=== PATIENT | male | born 1980 | race Caucasian/White ===

== ENCOUNTER 2021-06-11 17:23 | Emergency (ER) | payer OTHER, SELFPAY ==
--- NOTE | ~2021-06-11 | CT_ITS ---
EXAMINATION: CT brain wo con DATE: 06/11/2021 18:41 INDICATION: Headache. TECHNIQUE: Computed tomography (CT) of the head was performed without intravenous contrast. The mA wa s adjusted according to patient size. Iterative reconstruction technique was employed. The dose-lengt h product was 605.33 mGy-cm. COMPARISON: None FINDINGS: There is no intracranial hemorrhage, acute infarction, or abnormal intracranial mass lesion . The ventricles are normal in size. The paranasal sinuses are clear. The orbits are normal. The mast oid air cells are normal. IMPRESSION: 1. Normal brain. Reviewed, dictated and finalized at location A. IMPRESSION: 1. Normal brain.
[2021-06-11 17:27] VITALS: BP 175/107; PULSE 59; RESP 16; TEMP 36.7; O2SAT 99
[2021-06-11 18:29] VITALS: BP 158/114; PULSE 62; RESP 18; O2SAT 98
--- NOTE | 2021-06-11 18:34 | PC.NURSE ---
pt off floor to radiology
[2021-06-11] MEDS: diphenhydrAMINE HCl INJ 50 MG/ML VIAL 25 MG IV PUSH (18:50)
[2021-06-11] MEDS: KETOROLAC 30 MG/ML VIAL (*BKC) IV PUSH (18:50)
[2021-06-11] MEDS: SODIUM CHLORIDE 0.9% IV 1,000 ML 999 ML IV CONT (18:50)
[2021-06-11] MEDS: METOCLOPRAMIDE HCL INJ 10 MG/2 ML VIAL IV PUSH (18:50)
--- NOTE | 2021-06-11 19:19 | ED.HA ---
HPI - Headache General Chief Complaint: Headache Stated Complaint: HEADACHE Time Seen by Provider: 06/11/21 17:50 History of Present Illness HPI Narrative: Patient is a 40-year-old male who presents ER with headache. Throbbing and frontal. Began rapidly earlier in the day. Contacted his neurologist in an attempt to get a migraine cocktail but was referred here since he told him that is 10/10 pain. Has sensitivity to light. No numbness or tingling or focal weakness. Has had chronic headaches for 10 months since lucas COVID-19. No fevers or chills or sweats. No neck stiffness. No trauma or straining. Related Data Allergies Allergy/AdvReac Type Severity Reaction Status Date / Time No Known Allergies Allergy Unknown Verified 06/11/21 18:33 Review of Systems Review of Systems: All systems reviewed & are unremarkable except as noted in HPI and below Constitutional: Constitutional: Denies chills, Denies fever(s) and Denies weakness Eyes: Eyes: Denies change in vision and Reports photophobia ENT: Denies nasal congestion and Denies sore throat Musculoskeletal: Musculoskeletal: Denies back pain and Denies muscle cramps Neurologic: Denies vertigo, Denies syncope, Reports headache(s), Denies focal weakness and Denies numbness PMFSH Past Medical History Medical History (Updated 06/11/21 @ 19:27 by Akin White MD) Chronic headaches Surgical History Surgical History (Updated 06/11/21 @ 19:24 by Akin White MD) H/O inguinal hernia repair History of carpal tunnel release History of tonsillectomy Family History Family History (Updated 05/25/16 @ 14:31 by DOCTOR UNKNOWN) Grandparent Diabetes mellitus Other Carcinoma of colon Social History Social History Smoking status: Never smoker Alcohol intake: never Exam Narrative: GENERAL: Well-appearing, well-nourished, and in no acute distress. HEAD: Normocephalic, atraumatic. EYES: PERRLA and EOMI. ENT: Mucous membranes moist. Normal-appearing posterior oropharynx. CHEST: Clear to auscultation. No respiratory distress. HEART: Regular rate and rhythm. Normal peripheral pulses. EXTREMITIES: Normal range of motion. No edema. SKIN: Warm, dry, no rash. NEURO: Alert and oriented x3. PSYCH: Normal mood and affect. Course Course Emergency Course: Patient reports headache improving with Reglan/Benadryl/Toradol/IV fluids. CT unremarkable for acute process. We will plan discharge home. Vital Signs Vital signs: Vital Signs Temperature 98.1 F 06/11/21 17:27 Pulse Rate 59 L 06/11/21 17:27 Respiratory Rate 16 06/11/21 17:27 Blood Pressure 175/107 H 06/11/21 17:27 Pulse Oximetry 99 06/11/21 17:27 Temperature 97.6 F 06/11/21 20:23 Pulse Rate 55 L 06/11/21 20:23 Respiratory Rate 18 06/11/21 20:23 Blood Pressure 139/102 H 06/11/21 20:23 Pulse Oximetry 99 06/11/21 20:23 MDM - Headache Imaging Data Radiologist's impression: ITS Impressions Head CT 06/11/21 18:46 IMPRESSION: 1. Normal brain. Discharge Plan Discharge Clinical Impression: Headache Patient Disposition: Home, Self-Care Condition: Stable Instructions: Acute Headache (ED) Additional Instructions: Return the ER if you lose consciousness, you have fever over 100.4 ?F, you develop new focal weakness or numbness in arm or leg, you have additional concerns. Follow-up/Referrals: CANDIDA,DAWOOD CHURCH [Primary Care Provider] - 1 Week
[2021-06-11 20:23] VITALS: BP 139/102; PULSE 55; RESP 18; TEMP 36.4; O2SAT 99
== END 2021-06-11 20:27 | disposition home or self-care (01) ==
LOC: ANHED 19:31
PROVIDERS: Emergency Provider Emergency Medicine; PCP Nurse Practitioner Family
DX: R51.9 Headache, unspecified (principal); U09.9 Post COVID-19 condition, unspecified
CPT/HCPCS: 70450; 96361; 96374; 96375; 99284; J1200; J1885; J2765; J7030

== ENCOUNTER 2022-08-25 16:24 | Emergency (ER) | payer OTHER, SELFPAY ==
--- NOTE | ~2022-08-25 | XR_ITS ---
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 RESULT: Lines, tubes, and devices: None. Lungs and pleura: Clear. Cardiomediastinal silhouette: Unremarkable. Other: No acute osseous or upper abdominal finding. IMPRESSION: No acute cardiopulmonary process. Reviewed, dictated and finalized at location K. TUB OPERATOR
[2022-08-25 16:41] VITALS: BP 156/108; PULSE 91; RESP 16; TEMP 37; O2SAT 99
[2022-08-25 16:42] VITALS: BP 173/102
--- NOTE | 2022-08-25 17:10 | ED.URI ---
HPI - URI/Sore Throat General Chief Complaint: Upper Respiratory Infection Stated Complaint: cough; headache Time Seen by Provider: 08/25/22 16:40 Source: patient Mode of arrival: ambulatory Limitations: no limitations History of Present Illness HPI Narrative: Spenser is a 41-year-old male patient presenting to the clinic today with complaints of cough and headache from his cough. Reports that he had influenza at Thanksgiving time and has had a cough ever since it has been lingering. He reports he does bring up some phlegm at times. He denies any fever or chills currently. States he has had a history of pneumonia in the past MD elicited complaint: cough and nasal congestion Related Data Home Medications Medication Instructions Recorded Confirmed amlodipine 5 mg tablet 5 mg PO DAILY 08/25/22 08/25/22 escitalopram oxalate 20 mg tablet 20 mg PO DAILY 08/25/22 08/25/22 testosterone cypionate 200 mg/mL 20 mg IM DAILY 08/25/22 08/25/22 intramuscular oil Allergies Allergy/AdvReac Type Severity Reaction Status Date / Time No Known Allergies Allergy Unknown Verified 08/25/22 16:52 Review of Systems Review of Systems: Pertinent positives per HPI. Patient denies any fever, chills, rash, visual changes, dizziness, shortness of breath, chest pain, palpitations, nausea, vomiting, diarrhea, constipation, abdominal pain, or any urinary issues. PMFSH Past Medical History Medical History Chronic headaches Surgical History Surgical History H/O inguinal hernia repair History of carpal tunnel release History of tonsillectomy Family History Family History Grandparent Diabetes mellitus Other Carcinoma of colon Social History Social History Smoking status: Never smoker Alcohol intake: never Comments At the time of my signature, I reviewed and agree with the nursing past medical, surgical, social, and family history. There is no relevant family history pertinent to the patient complaint. Exam Narrative: General: Well-developed, well nourished, in no apparent distress Head: Normocephalic, atraumatic Eyes: Pupils equally round and reactive to light bilaterally, EOM intact, sclera and conjunctive clear, no discharge, lids normal Ears: TMs intact and clear, ear canals clear, no drainage, grossly hearing normal. Nose: Nares patent, clear nasal discharge, no inflammation, no sinus tenderness. Mouth: Oral pharynx without lesions or masses, good dentition, MMM. Neck: Supple, trachea midline, no enlargement of anterior or posterior cervical nodes, no thyroid masses or goiter palpable. Cardio: Regular rate and rhythm, s1 and s2 normal, no murmur appreciated. Resp: Clear to auscultation bilaterally, no rhonchi, rales, wheezing or rubs Course Course Emergency Course: Portions of this record may have been created with voice recognition software. Level of Care: Express Care Visit Vital Signs Vital signs: Vital Signs Temperature 37.0 C 08/25/22 16:41 Pulse Rate 91 08/25/22 16:41 Respiratory Rate 16 08/25/22 16:41 Blood Pressure 156/108 H 08/25/22 16:41 Pulse Oximetry 99 08/25/22 16:41 Temperature 37.0 C 08/25/22 16:41 Pulse Rate 91 08/25/22 16:41 Respiratory Rate 16 08/25/22 16:41 Blood Pressure 173/102 H 08/25/22 16:42 Pulse Oximetry 99 08/25/22 16:41 Vital signs reviewed MDM - URI/Sore Throat MDM Narrative Medical decision making narrative: At the time of visit patient is resting comfortably on the exam table. Chest x-ray was negative for any sign of pneumonia. I suspect patient has a postviral cough. Prescription for Cheratussin, prednisone, and albuterol inhaler was sent to pharmacy. Supportive measures were discussed
== END 2022-08-25 17:23 | disposition home or self-care (01) ==
PROVIDERS: Emergency Provider Nurse Practitioner Family; PCP Nurse Practitioner Family
DX: R05.9 Cough, unspecified (principal)
CPT/HCPCS: 71046; 99213; G0463

== ENCOUNTER → 2023-09-04 07:33 | Outpatient (CLI) | payer OTHER, SELFPAY ==
--- NOTE | ~2023-09-04 | US_ITS ---
Limited Abdominal Sonogram: Real-time sonographic imaging of the right upper quadrant was performed. Clinical History: Periumbilical pain Findings: Scanning of the umbilical region demonstrates a fat-containing umbilical hernia with hernia juju fat measuring 2.9 x 1.9 cm in extent. No bowel involvement in the hernia identified. Impression: Fat-containing umbilical hernia, as detailed above. Reviewed, dictated and finalized at location . C PASTOR Impression: Fat-containing umbilical hernia, as detailed above.
== END ==
PROVIDERS: PCP Nurse Practitioner Family; Visit Provider Nurse Practitioner Family
DX: R10.33 Periumbilical pain (principal); R19.00 Intra-abdominal and pelvic swelling, mass and lump, unspecified site; K42.9 Umbilical hernia without obstruction or gangrene
CPT/HCPCS: 76705

== ENCOUNTER 2024-08-31 09:41 | Outpatient (CLI) | payer OTHER, SELFPAY ==
--- NOTE | ~2024-08-31 | MR_ITS ---
EXAMINATION: MR shoulder RT wo con DATE: 08/31/2024 10:20 INDICATION: Right shoulder pain TECHNIQUE: Magnetic resonance imaging (MRI) of the right shoulder was performed without intravenous c ontrast. Sequences included axial PD-weighted FS FSE, coronal oblique PD-weighted FS FSE, coronal obl ique T2-weighted FS FSE, sagittal PD-weighted FS FSE, and sagittal T1-weighted SE. COMPARISON: None. FINDINGS: Coracoacromial arch: The acromion undersurface is curved in morphology (type II). The coracoacromial ligament is normal. M ild acromioclavicular osteoarthritis. Rotator cuff: The supraspinatus, infraspinatus and subscapularis tendinopathy. There is bursal sided fraying/shallo w tearing along the greater tuberosity footplate of the supraspinatus tendon but without a discrete m easurable tear defect. The teres minor tendon is normal. Normal rotator cuff muscle bulk and signal. Biceps tendon, glenoid labrum and glenohumeral cartilage: Long head of the biceps tendon is normal. Glenoid labrum is normal. Glenohumeral cartilage is normal. Fluid: Physiologic amount of fluid in the glenohumeral joint and biceps tendon sheath. No loose osteochondr al bodies. Small amount of fluid in the subacromial/subdeltoid bursa consistent with mild bursitis. Bones: Normal marrow signal with no edema, fracture or abnormal marrow replacing process. Mild hypertrophic and cystic change along the superior and middle facets of the greater tuberosity. IMPRESSION: 1. Mild subscapularis, supraspinatus and infraspinatus tendinopathy with shallow bursal sided fraying along the distalmost supraspinatus tendon. 2. Mild subacromial/subdeltoid bursitis. 3. Mild acromioclavicular osteoarthritis. Reviewed, dictated and finalized at location B. POINTER IMPRESSION: 1. Mild subscapularis, supraspinatus and infraspinatus tendinopathy with shallo w bursal sided fraying along the distalmost supraspinatus tendon. 2. Mild subacromial/subdeltoid bursitis. 3. Mild acromioclavicular osteoarthritis.
== END 2024-08-31 09:42 | disposition home or self-care (01) ==
PROVIDERS: PCP Family Medicine Sports Medicine; Visit Provider Nurse Practitioner Family
DX: M75.81 Other shoulder lesions, right shoulder (principal); M25.511 Pain in right shoulder; M75.51 Bursitis of right shoulder; M19.011 Primary osteoarthritis, right shoulder
CPT/HCPCS: 73221